=== PATIENT | male | born 1975 | race Hispanic/Latino ===

== ENCOUNTER 2021-02-15 11:04 | Emergency (ER) | payer BC, MEDICARE ==
[~2021-02-15] VITALS: Ht 162.6 cm; Wt 81.6 kg
[2021-02-15 11:21] VITALS: BP 137/77
[2021-02-15 11:45] LABS: BASOPHILS % (AUTO) 0.5 % (0.0-5.0); EOSINOPHILS % (AUTO) 2.6 % (0.0-8.0); HEMATOCRIT 23.7 % (42-54); MEAN CORPUSCULAR HEMOGLOBIN 32.7 pg (27.0-33.0); MEAN CORPUSCULAR HGB CONC 33.8 g/dL (32.0-36.0); MEAN CORPUSCULAR VOLUME 96.7 fL (79-99); MONOCYTES % (AUTO) 13.7 % (3.0-13.0); NEUTROPHILS % (AUTO) 43.9 % (40.0-77.0); PLATELET COUNT (AUTO) 79 K/uL (130-400); RED BLOOD CELL COUNT(AUTO) 2.45 MIL/uL (4.50-6.20); RED CELL DISTRIBUTION WIDTH 17.4 % (11.0-15.5); WHITE BLOOD COUNT (AUTO) 6.6 K/uL (4.8-10.8)
[2021-02-15 12:03] LABS: INR 2.1 (0.85-1.15); PROTHROMBIN TIME 21.4 SEC (9.6-11.6)
[2021-02-15 12:05] LABS: PARTIAL THROMBOPLASTIN TIME 43.3 SEC (26.3-35.5)
[2021-02-15 12:16] LABS: ALBUMIN 2.1 g/dL (3.5-5.0); BILIRUBIN,TOTAL 6.4 mg/dL (0.2-1.0); CREATININE 1.1 mg/dL (0.5-1.5); POTASSIUM 4.2 mmol/L (3.5-5.1); TOTAL PROTEIN, SERUM 7.3 g/dL (6.0-8.3)
[2021-02-15 13:20] VITALS: BP 136/69
== END 2021-02-15 13:28 | disposition home or self-care (01) ==
LOC: EDH 11:32
DX: R18.8 Other ascites (principal); Z88.0 Allergy status to penicillin
CPT/HCPCS: 36415; 80053; 82140; 83690; 85025; 85610; 85730

== ENCOUNTER → 2021-02-15 | Outpatient (CLI) | payer BC, MEDICARE ==
[~2021-02-15] MED LIST: ALBUMIN (HUMAN) 25% 200 ML IV SCH
[2021-02-15 17:00] LABS: ALBUMIN,BODY FLUID 0.6 g/dL
[2021-02-15 17:13] LABS: APPEARANCE BODY FLUID SLIGHTLY CLOUDY (CLEAR); SPECIMENTYPE,BODY FLUID ASCITES
[2021-02-15 17:14] LABS: COLOR,BODY FLUID YELLOW (LT YELLOW); TOTAL VOLUME,BODY FLUID 1250 mL
[2021-02-15 17:16] LABS: BODY FLUID RBC 47 /cu. mm.; BODY FLUID WBC 103 /cu. mm.
[2021-02-15 17:28] LABS: BF LYMPHOCYTE 10 %; BF OTHER CELLS 18
== END | disposition home or self-care (01) ==
LOC: RAH 10:39
PROVIDERS: ATTEND Internal Medicine Gastroenterology
DX: R18.8 Other ascites (principal)
CPT/HCPCS: 49083; 82042; 84157; 87071; 87205; 89051; A4215